=== PATIENT | male | born 1980 | race Caucasian/White ===

== ENCOUNTER 2025-04-05 02:32 | Emergency (ER) | payer OTHER, SELFPAY ==
[2025-04-05] VITALS (16 sets, daily range): BP systolic 120–157; BP diastolic 68–102; PULSE 49–80; RESP 11–21; TEMP 36.6–36.7; O2SAT 95–99; BMI 30.9
--- NOTE | 2025-04-05 02:30 | XR_ITS ---
PROCEDURE INFORMATION: Exam: XR Chest Exam date and time: 04/05/2025 2:35 AM Age: 44 years old Clinical indication: Other: Upper chest pain radiating to L arm TECHNIQUE: Imaging protocol: Radiologic exam of the chest. Views: 2 views. COMPARISON: No relevant prior studies available. FINDINGS: Lungs: Unremarkable. No consolidation. Pleural spaces: Unremarkable. No pleural effusion. No pneumothorax. Heart/Mediastinum: Unremarkable. No cardiomegaly. Bones/joints: Unremarkable. IMPRESSION: No acute findings.
--- NOTE | 2025-04-05 02:30 | ECG_ITS ---
APPROVED REPORT Exam: Resting ECG HR:68 bpm ECG Measurements Heart Rate 68 AXES OH 117 P 64 QRSd 110 QRS 73 QT 370 T 66 QTc 388 Conclusion SINUS RHYTHM WITH SHORT OH INTERVAL No STEMI Electronically signed by : MARYCHUY MCGOVERN, 04/05/2025 06:51:21
--- NOTE | 2025-04-05 02:31 | ED_ITS ---
Discharge Plan Disposition Patient Disposition: Home, Self-Care Condition: Good Prescriptions Prescriptions: No Action azithromycin 250 MG tablet 250 mg PO DIRECTED Qty: 6 0RF Rx Instructions: Take two (2) tablets on day #1, then one (1) tablet day #2 thru #5 loperamide 2 MG tablet 2 mg PO TIDP PRN (Reason: Diarrhea) Qty: 10 0RF promethazine 25 MG tablet 25 mg PO Q6HP PRN (Reason: Nausea And Vomiting) Qty: 10 0RF Referrals Follow up/Referrals: Amando Fung MD [Staff Physician] - See instructions (Please call to schedule follow-up with Cardiology.) Francisco Hayes MD [Primary Care Provider] - See instructions Activity Restrictions/Add. Instructions Additional Instructions/Restrictions: You were evaluated for chest pain and did not have evidence of a heart attack at this time. Due to your recent mini stroke, you are likely at high risk for an event related to your heart. Follow-up with cardiology as recommended for further testing. The number to their office is included in your referral paperwork. Please call them this morning to schedule that appointment and let them know that you were seen in the emergency department overnight. Continue taking your medications as prescribed. Please return for any new or worsening symptoms. Clinical Impressions Clinical Impression: Chest pain Qualifiers: Chest pain type: unspecified Qualified Code(s): R07.9 - Chest pain, unspecified Stand Alone Forms Stand Alone Forms: Work/School Release Instructions Patient Instructions: DI for Chest Pain Print Language Print Language: Maltese Discharge ED Provider: Michael Walls HPI <Michael Walls MD - Last Filed: 04/05/25 06:53> General Chief Complaint: Chest Pain Stated Complaint: Chest Pain Time Seen by Provider: 04/05/25 02:32 History of Present Illness HPI narrative: 44-year-old male presents to the ER complaining of upper chest pain. Patient's pain started 2-1/2 hours prior to arrival. He reports he was seen at [facility] 1 week ago and diagnosed with a mini stroke . He states he was also told he had high blood pressure at that time and was started on lisinopril. He was just laying down when he started to having pain across the upper chest on both sides. He started having tingling radiating into the left arm. He took 324 mg of aspirin and his normal morning dose of lisinopril. Symptoms did not improve so he called EMS. EMS administered nitro prior to arrival. Patient reports since receiving nitro his chest pain and arm tingling are improved. Chest pain now 2 out of 10. He reports his symptoms from the mini stroke included left arm numbness but this sensation that he experienced tonight associated with the chest pain was different. He has no numbness or weakness in any extremity. No nausea, vomiting, or diarrhea. No headache, dizziness, jaw pain, or leg swelling. No recent illness. Related Data Previous Rx's ?Medication ?Instructions ?Recorded azithromycin 250 mg tablet 250 mg PO DIRECTED #6 tabs 02/25/20 loperamide 2 mg tablet 2 mg PO TIDP PRN Diarrhea #10 tabs 02/25/20 promethazine 25 mg tablet 25 mg PO Q6HP PRN Nausea And 02/25/20 Vomiting #10 tabs Allergies Allergy/AdvReac Type Severity Reaction Status Date / Time CODEINE Allergy Intermediate I-ITCHING Uncoded 11/19/17 14:40 Penicillin Allergy Mild I-HIVES Uncoded 11/19/17 14:40 [facility] <Michael Walls MD - Last Filed: 04/05/25 06:53> [facility] Disclaimer: The information contained in this section may have been updated after the patient was seen, as this information can be updated by other users. Social History Smoking Status: Current every day smoker tobacco type: cigarettes packs per day: 1 alcohol intake: never current occupational status: other Travel in the last 8 weeks?: None Have you lived/traveled outside US in past 30 days?: No Contact w/someone who lives/traveled outside US past 30 days?: No Exposure to someone with infectious disease in past 14 days?: No Do you have a fever (greater than 100.4 F or 38 C)?: No Have you tested positive for COVID-19?: No Exposed to someone with COVID-19 in past 14 days?: No Do you have a sore throat?: No Do you have a cough?: No Do you have any weakness?: No Do you have any diarrhea?: No Are you experiencing any unusual bleeding?: No Do you have any muscle aches/pain?: No Do you have any abdominal pain?: No Are you experiencing loss of taste or smell?: No Other Medical History Have you received the Flu Vaccine for this season: No Have you received the Pneumonia Vaccine: No <Michael Walls MD - Last Filed: 04/05/25 06:53> ROS Obtained: Yes Systems reviewed as appropriate & no additional complaints except as documented per HPI Physical Exam <Michael Walls MD - Last Filed: 04/05/25 06:53> General General appearance: alert and in no apparent distress Head Head exam: atraumatic and normocephalic Eye Eye exam: Present PERRL and EOMI ENT ENT exam: Present mucous membranes moist Neck Neck exam: Present normal inspection and full ROM Chest Chest inspection: Present symmetric chest wall rise Respiratory Respiratory exam: Present normal lung sounds bilaterally; Absent respiratory distress, wheezes or stridor Cardiovascular Cardiovascular exam: Present regular rate and normal rhythm Abdominal Exam Abdominal exam: Present soft; Absent distention or tenderness Extremities Exam Extremities exam: Present full ROM Neurological Exam Neurological exam: Present alert, oriented X3 and other (NIH 0, no identifiable deficits on exam); Absent motor sensory deficit Psychiatric Psychiatric exam: Present normal affect and normal mood Skin Skin exam: Present warm and dry HEART Score <Michael Walls MD - Last Filed: 04/05/25 06:53> HEART Score HEART Score assessment performed?: Yes History (anamnesis): Moderately suspicious ECG: Non-specific disturbance Age: <45 years Risk factors: Atherosclerosis history Troponin: </= normal limit HEART Score: 4 <Ryann Vergara MD - Last Filed: 04/05/25 09:10> HEART Score HEART Score: 4 Critical Care <Michael Walls MD - Last Filed: 04/05/25 06:53> Critical Care Time Critical Care Time: No Medical Decision Making <Michael Walls MD - Last Filed: 04/05/25 06:53> Medical Records Medical records reviewed: Yes I reviewed the patient's medical records. MR Comment: The last records of this patient in our system are from 2020 patient was seen by Dr[address] Pate. He was diagnosed with gastroenteritis, right otitis media, sinusitis. He was prescribed Zithromax, Phenergan, Imodium Lauro Inquiry Pt receiving controlled substance: No Vital Signs Vital Signs: 04/05/25 02:34 04/05/25 03:00 04/05/25 03:11 Temperature 97.9 F Temperature Source Oral Pulse Rate 60 80 Pulse Rate [Right Radial] 80 Respiratory Rate 16 18 Blood Pressure 121/72 Blood Pressure [Right Arm] 136/81 Blood Pressure Mean Blood Pressure Mean [Right Arm] 99 Blood Pressure Source [Right Arm] Automatic Cuff Blood Pressure Position [Right Arm] Supine 02 Sat by Pulse Oximetry 99 96 Oxygen Delivery Method Room Air 04/05/25 03:31 04/05/25 04:00 04/05/25 04:30 Temperature Temperature Source Pulse Rate 67 57 L 54 L Pulse Rate [Right Radial] Respiratory Rate 11 L 19 17 Blood Pressure 125/74 120/68 122/70 Blood Pressure [Right Arm] Blood Pressure Mean Blood Pressure Mean [Right Arm] Blood Pressure Source [Right Arm] Blood Pressure Position [Right Arm] 02 Sat by Pulse Oximetry 97 96 96 Oxygen Delivery Method 04/05/25 05:00 04/05/25 05:30 04/05/25 06:00 Temperature Temperature Source Pulse Rate 51 L 53 L 51 L Pulse Rate [Right Radial] Respiratory Rate 16 21 18 Blood Pressure 122/74 133/81 125/77 Blood Pressure [Right Arm] Blood Pressure Mean Blood Pressure Mean [Right Arm] Blood Pressure Source [Right Arm] Blood Pressure Position [Right Arm] 02 Sat by Pulse Oximetry 97 97 95 Oxygen Delivery Method 04/05/25 06:30 04/05/25 07:00 04/05/25 07:30 Temperature Temperature Source Pulse Rate 54 L 55 L 49 L Pulse Rate [Right Radial] Respiratory Rate 21 19 20 Blood Pressure 138/83 133/77 142/86 H Blood Pressure [Right Arm] Blood Pressure Mean 99 107 Blood Pressure Mean [Right Arm] Blood Pressure Source [Right Arm] Blood Pressure Position [Right Arm] 02 Sat by Pulse Oximetry 95 97 97 Oxygen Delivery Method 04/05/25 08:02 04/05/25 08:30 04/05/25 09:00 Temperature Temperature Source Pulse Rate 51 L 51 L 58 L Pulse Rate [Right Radial] Respiratory Rate 18 19 14 Blood Pressure 149/83 H 141/89 H 157/102 H Blood Pressure [Right Arm] Blood Pressure Mean 101 108 118 Blood Pressure Mean [Right Arm] Blood Pressure Source [Right Arm] Blood Pressure Position [Right Arm] 02 Sat by Pulse Oximetry 96 96 98 Oxygen Delivery Method Lab Data Labs: Lab Results 04/05/25 02:20: WBC 16.5 H, RBC 5.02, Hgb 15.2, Hct 45.3, MCV 90.2, MCH 30.3, MCHC 33.6, RDW 13.0, Plt Count 245, MPV 11.7 H, Neut % (Auto) 61.8, Lymph % (Auto) 28.6, [place] % (Auto) 7.1, Eos % (Auto) 1.8, Baso % (Auto) 0.3, Neut # (Auto) 10.2 H, Lymph # (Auto) 4.7 H, [place] # (Auto) 1.2 H, Eos # (Auto) 0.3, Baso # (Auto) 0.1, PT 10.3, INR 0.91, Sodium 139, Potassium 3.8, Chloride 107, Carbon Dioxide 28, Anion Gap 7.8, BUN 16, Creatinine 0.90, Estimated Creat Clear 139, Estimated GFR 93, Est GFR ( Amer) 112, Glucose 101 H, Calcium 8.8, Total Bilirubin 0.4, AST 32, ALT 20, Alkaline Phosphatase 109, Troponin I < 0.01, NT-Pro-B Natriuret Pep < 20.0, Total Protein 7.3, Albumin 4.5, Globulin 2.8, Albumin/Globulin Ratio 1.6 04/05/25 05:23: Troponin I < 0.01 04/05/25 02:20 04/05/25 02:20 Response Orders (Tests/Meds): ED MEDICATIONS Discontinued Medications Generic Name Dose Route Start Last Admin Trade Name Freq PRN Reason Stop Dose Admin Aspirin 324 mg 04/05/25 02:29 04/05/25 02:39 Aspirin 81mg Chewable Tablet PO 04/05/25 02:30 Not Given ONCE ONE Nitroglycerin 0.4 mg 04/05/25 02:29 04/05/25 02:41 Nitroglycerin 0.4mg Sl Tablet SL 04/05/25 02:30 0.4 mg ONCE ONE Administration ORDERS Category Date Time Status XR chest 2V Stat Exams 04/05/25 02:30 Completed Complete Blood Count Auto Diff Stat Lab 04/05/25 02:20 Completed Comprehensive Metabolic Panel Stat Lab 04/05/25 02:20 Completed NT Pro Brain Natriuretic Pep. Stat Lab 04/05/25 02:20 Completed Prothrombin Time INR Stat Lab 04/05/25 02:20 Completed Troponin I Q3H Lab 04/05/25 05:23 Completed Troponin I Stat Lab 04/05/25 02:20 Completed MDM Narrative Medical Decision Narrative: In summary, this 44-year-old male with comorbidities described in the HPI which may not be at goal therapy presents to the emergency department today with chest pain and tingling radiating into the left arm. On initial evaluation patient is hemodynamically stable, afebrile, describes his pain as 2 out of 10 since receiving the nitro, GCS 15, no neurologic deficits, cardiopulmonary exam benign, no reproducible chest wall tenderness, abdominal exam benign. Differential diagnosis includes but is not limited to ACS, I considered PE but patient is PERC negative, with patient having recent mini stroke I had considered the possibility that his tingling was related to neurologic symptoms however he states the onset was associated with his chest pain and the tingling also subsided as his chest pain lessened. He also states that the sensation of tingling was different than the sensation of numbness that he experienced with his recent mini stroke. I considered electrolyte abnormality, esophageal spasm, pneumothorax, among others. Based on these concerns, I ordered cardiac workup, serum labs. ECG personally interpreted demonstrates sinus rhythm, rate 68, normal axis, normal QTc, CT is slightly short at 117ms but no delta wave that would be concerning for WPW. Patient received additional dose of sublingual nitro for treatment in an attempt to completely eliminate his chest pain. Labs personally reviewed demonstrate leukocytosis WBC 16.5 which is nonspecific and nonactionable at this time, hemoglobin normal at 15.2, normal platelets, CMP nonactionable, initial troponin undetectably low less than 0.01, BNP undetectable less than 20. XR personally interpreted demonstrates no acute intrathoracic abnormality, see radiology read for final interpretation. On reassessment patient's pain is now 1 out of 10. He states he is feeling improved. I am reassured that his symptoms are improving however he has significant risk factors especially with his recent diagnosis of mini stroke. Unfortunately with this atherosclerosis risk that increases my concern about the etiology of his chest pain and my concern for it being cardiac in nature. I discussed with the patient staying in the ER for serial troponins and continued monitoring. He is agreeable to this. Patient was placed in the ED observation at 0300 for serial troponins to rule out evolving SC and preclude unnecessary admission. He remains on the cardiac technologist. He is being frequently reassessed. Patient has remained hemodynamically stable. His pain continued to improve. He currently is asymptomatic with no chest pain or arm tingling. Repeat troponin also undetectably low less than 0.01. Patient will remain in ED observation until cardiology team is available to assess the patient. They should be here in approximately 45 minutes. Hopefully their evaluation will preclude an unnecessary admission. With his recent mini stroke increasing risk factors for cardiovascular disease, I believe it is important to have him evaluated by cardiology before discharge. Patient agreeable to this plan. Patient handed off to Dr. Vergara in stable condition pending cardiology evaluation. <Ryann Vergara MD - Last Filed: 04/05/25 09:10> Vital Signs Vital Signs: 04/05/25 02:34 04/05/25 03:00 04/05/25 03:11 Temperature 97.9 F Temperature Source Oral Pulse Rate 60 80 Pulse Rate [Right Radial] 80 Respiratory Rate 16 18 Blood Pressure 121/72 Blood Pressure [Right Arm] 136/81 Blood Pressure Mean Blood Pressure Mean [Right Arm] 99 Blood Pressure Source [Right Arm] Automatic Cuff Blood Pressure Position [Right Arm] Supine 02 Sat by Pulse Oximetry 99 96 Oxygen Delivery Method Room Air 04/05/25 03:31 04/05/25 04:00 04/05/25 04:30 Temperature Temperature Source Pulse Rate 67 57 L 54 L Pulse Rate [Right Radial] Respiratory Rate 11 L 19 17 Blood Pressure 125/74 120/68 122/70 Blood Pressure [Right Arm] Blood Pressure Mean Blood Pressure Mean [Right Arm] Blood Pressure Source [Right Arm] Blood Pressure Position [Right Arm] 02 Sat by Pulse Oximetry 97 96 96 Oxygen Delivery Method 04/05/25 05:00 04/05/25 05:30 04/05/25 06:00 Temperature Temperature Source Pulse Rate 51 L 53 L 51 L Pulse Rate [Right Radial] Respiratory Rate 16 21 18 Blood Pressure 122/74 133/81 125/77 Blood Pressure [Right Arm] Blood Pressure Mean Blood Pressure Mean [Right Arm] Blood Pressure Source [Right Arm] Blood Pressure Position [Right Arm] 02 Sat by Pulse Oximetry 97 97 95 Oxygen Delivery Method 04/05/25 06:30 04/05/25 07:00 04/05/25 07:30 Temperature Temperature Source Pulse Rate 54 L 55 L 49 L Pulse Rate [Right Radial] Respiratory Rate 21 19 20 Blood Pressure 138/83 133/77 142/86 H Blood Pressure [Right Arm] Blood Pressure Mean 99 107 Blood Pressure Mean [Right Arm] Blood Pressure Source [Right Arm] Blood Pressure Position [Right Arm] 02 Sat by Pulse Oximetry 95 97 97 Oxygen Delivery Method 04/05/25 08:02 04/05/25 08:30 04/05/25 09:00 Temperature Temperature Source Pulse Rate 51 L 51 L 58 L Pulse Rate [Right Radial] Respiratory Rate 18 19 14 Blood Pressure 149/83 H 141/89 H 157/102 H Blood Pressure [Right Arm] Blood Pressure Mean 101 108 118 Blood Pressure Mean [Right Arm] Blood Pressure Source [Right Arm] Blood Pressure Position [Right Arm] 02 Sat by Pulse Oximetry 96 96 98 Oxygen Delivery Method Lab Data Labs: Lab Results 04/05/25 02:20: WBC 16.5 H, RBC 5.02, Hgb 15.2, Hct 45.3, MCV 90.2, MCH 30.3, MCHC 33.6, RDW 13.0, Plt Count 245, MPV 11.7 H, Neut % (Auto) 61.8, Lymph % (Auto) 28.6, [place] % (Auto) 7.1, Eos % (Auto) 1.8, Baso % (Auto) 0.3, Neut # (Auto) 10.2 H, Lymph # (Auto) 4.7 H, [place] # (Auto) 1.2 H, Eos # (Auto) 0.3, Baso # (Auto) 0.1, PT 10.3, INR 0.91, Sodium 139, Potassium 3.8, Chloride 107, Carbon Dioxide 28, Anion Gap 7.8, BUN 16, Creatinine 0.90, Estimated Creat Clear 139, Estimated GFR 93, Est GFR ( Amer) 112, Glucose 101 H, Calcium 8.8, Total Bilirubin 0.4, AST 32, ALT 20, Alkaline Phosphatase 109, Troponin I < 0.01, NT-Pro-B Natriuret Pep < 20.0, Total Protein 7.3, Albumin 4.5, Globulin 2.8, Albumin/Globulin Ratio 1.6 04/05/25 05:23: Troponin I < 0.01 Response Orders (Tests/Meds): ED MEDICATIONS Discontinued Medications Generic Name Dose Route Start Last Admin Trade Name Freq PRN Reason Stop Dose Admin Aspirin 324 mg 04/05/25 02:29 04/05/25 02:39 Aspirin 81mg Chewable Tablet PO 04/05/25 02:30 Not Given ONCE ONE Nitroglycerin 0.4 mg 04/05/25 02:29 04/05/25 02:41 Nitroglycerin 0.4mg Sl Tablet SL 04/05/25 02:30 0.4 mg ONCE ONE Administration ORDERS Category Date Time Status XR chest 2V Stat Exams 04/05/25 02:30 Completed Complete Blood Count Auto Diff Stat Lab 04/05/25 02:20 Completed Comprehensive Metabolic Panel Stat Lab 04/05/25 02:20 Completed NT Pro Brain Natriuretic Pep. Stat Lab 04/05/25 02:20 Completed Prothrombin Time INR Stat Lab 04/05/25 02:20 Completed Troponin I Q3H Lab 04/05/25 05:23 Completed Troponin I Stat Lab 04/05/25 02:20 Completed MDM Narrative Medical Decision Narrative: In summary, this 44-year-old male with comorbidities described in the HPI which may not be at goal therapy presents to the emergency department today with chest pain and tingling radiating into the left arm. On initial evaluation patient is hemodynamically stable, afebrile, describes his pain as 2 out of 10 since receiving the nitro, GCS 15, no neurologic deficits, cardiopulmonary exam benign, no reproducible chest wall tenderness, abdominal exam benign. Differential diagnosis includes but is not limited to ACS, I considered PE but patient is PERC negative, with patient having recent mini stroke I had considered the possibility that his tingling was related to neurologic symptoms however he states the onset was associated with his chest pain and the tingling also subsided as his chest pain lessened. He also states that the sensation of tingling was different than the sensation of numbness that he experienced with his recent mini stroke. I considered electrolyte abnormality, esophageal spasm, pneumothorax, among others. Based on these concerns, I ordered cardiac workup, serum labs. ECG personally interpreted demonstrates sinus rhythm, rate 68, normal axis, normal QTc, CT is slightly short at 117ms but no delta wave that would be concerning for WPW. Patient received additional dose of sublingual nitro for treatment in an attempt to completely eliminate his chest pain. Labs personally reviewed demonstrate leukocytosis WBC 16.5 which is nonspecific and nonactionable at this time, hemoglobin normal at 15.2, normal platelets, CMP nonactionable, initial troponin undetectably low less than 0.01, BNP undetectable less than 20. XR personally interpreted demonstrates no acute intrathoracic abnormality, see radiology read for final interpretation. On reassessment patient's pain is now 1 out of 10. He states he is feeling improved. I am reassured that his symptoms are improving however he has significant risk factors especially with his recent diagnosis of mini stroke. Unfortunately with this atherosclerosis risk that increases my concern about the etiology of his chest pain and my concern for it being cardiac in nature. I discussed with the patient staying in the ER for serial troponins and continued monitoring. He is agreeable to this. Patient was placed in the ED observation at 0300 for serial troponins to rule out evolving SC and preclude unnecessary admission. He remains on the cardiac technologist. He is being frequently reassessed. Patient has remained hemodynamically stable. His pain continued to improve. He currently is asymptomatic with no chest pain or arm tingling. Repeat troponin also undetectably low less than 0.01. Patient will remain in ED observation until cardiology team is available to assess the patient. They should be here in approximately 45 minutes. Hopefully their evaluation will preclude an unnecessary admission. With his recent mini stroke increasing risk factors for cardiovascular disease, I believe it is important to have him evaluated by cardiology before discharge. Patient agreeable to this plan. Patient handed off to Dr. Vergara in stable condition pending cardiology evaluation. Ursula: Upon my assumption of care, patient is noted to be sleeping and in no acute distress with stable vital signs. Cardiology was paged twice between the hours of [id number]. Ultimately, patient was requesting to go home and has not had chest pain for the past 4 hours. Patient was in the emergency department for just under 7 hours with stable vital signs and negative troponin. Cardiology stated they had multiple inpatient patients to see prior to being able to evaluate Mr. Rodney. Patient confirmed that he is taking a daily aspirin as well as lisinopril. He was advised to follow-up with cardiology by calling them this morning to schedule an appointment. He was also advised to inform them of his overnight evaluation for chest pain in order to be seen sooner. Patient was given strict return precautions. Patient discharged in stable condition.
[2025-04-05 02:37] LABS: Basophils # 0.1 K/mm3 (0-0.2); Basophils % 0.3 % (0.1-2.0); Eosinophils # 0.3 Kmm3 (0.0-0.4); Eosinophils % 1.8 % (0.1-12.0); Hematocrit 45.3 % (42.0-52.0); Hemoglobin 15.2 g/dL (14.1-18.0); Lymphocytes # 4.7 K/mm3 (0.7-4.5); Lymphocytes % 28.6 % (10-50); Mean Corpuscular HGB Conc 33.6 g/dL (31.8-35.4); Mean Corpuscular Hemoglobin 30.3 pg (27.0-31.2); Mean Corpuscular Volume 90.2 fl (80-94); Mean Platelet Volume 11.7 fl (7.4-10.4); Monocytes # 1.2 K/mm3 (0.1-1.0); Monocytes % 7.1 % (1.7-9.3); Neutrophils # 10.2 K/mm3 (1.8-7.8); Neutrophils % 61.8 % (37.0-80.0); Nucleated Red Blood Cells # 0 10^3/uL; Nucleated Red Blood Cells % 0 %; Platelet Count 245 K/mm3 (142-424); Red Blood Count 5.02 M/mm3 (4.60-6.20); Red Cell Distribution Width-SD 42.6 fL; White Blood Count 16.5 K/mm3 (4.8-10.8)
[2025-04-05] MEDS: NITROGLYCERIN 0.4MG SL TABLET 0.4 MG SL (02:41)
[2025-04-05 02:49] LABS: Alanine Aminotransferase 20 U/L (12-78); Albumin Level 4.5 g/dl (3.5-5.0); Albumin/Globulin Ratio 1.6 (1.1-1.8); Alkaline Phosphatase 109 U/L (38-126); Anion Gap 7.8 mEq/L (5-15); Aspartate Amino Transferase 32 U/L (17-59); Bilirubin,Total 0.4 mg/dl (0.2-1.3); Blood Urea Nitrogen 16 mg/dl (9-20); Calcium 8.8 mg/dl (8.4-10.2); Carbon Dioxide 28 mmol/L (22.0-30.0); Chloride 107 mmol/L (98-107); Creatinine Clearance Estimated 139 mL/min (50-200); Estimated Glomerular Filt Rate 93 ml/min (>60); GFR (African American) 112 ML/MIN (>60); Globulin 2.8 g/dL (1.3-3.2); Glucose 101 mg/dl (74-100); Potassium 3.8 mmoL/L (3.5-5.1); Sodium 139 mmol/L (136-145); Total Protein,Serum 7.3 g/dl (6.3-8.2)
[2025-04-05 02:59] LABS: NT Pro Brain Natriuretic Pep. < 20.0 pg/mL (0-125)
[2025-04-05 03:04] LABS: Troponin I < 0.01 ng/ml (0.00-0.034)
[2025-04-05 05:53] LABS: Troponin I < 0.01 ng/ml (0.00-0.034)
[2025-04-05 07:11] LABS: INR 0.91 (0.9-1.1); Prothrombin Time 10.3 seconds (10.1-12.5)
--- NOTE | 2025-04-05 08:59 | PC.NURSE ---
Paged Cardiology again for pt consult. They stated it would be awhile due to inpatient consults. notified. Pt agreed to follow up with them outpatient.
== END 2025-04-05 09:10 | disposition home or self-care (01) ==
PROVIDERS: Emergency Provider Emergency Medicine; PCP Internal Medicine Adolescent Medicine
DX: R07.89 Other chest pain (principal); I10 Essential (primary) hypertension
CPT/HCPCS: 71046; 80053; 83880; 84484; 85025; 85610; 93005; 99285

== ENCOUNTER 2025-04-14 07:46 | Outpatient (CLI) | payer OTHER, SELFPAY ==
--- NOTE | 2025-04-14 | CA_ITS ---
APPROVED REPORT Exam: Exercise Treadmill Technologist: Kenyetta Aquino Ht: 5 ft 8 in Wt: 196 lbs BSA: 2.03 m2 Medical History Medications: Lisinopril, Aspirin Stress Test Details Test: Exercise stress testing was performed using a modified Presley protocol. HR Resting HR: 54 bpm Max Heart Rate (APMHR): 178 bpm Max HR Achieved: 159 bpm Target HR (85% APMHR): 151 bpm % of APMHR: 89 Recovery HR: 100 bpm BP Resting BP: 125.0/64.0 mmHg Max BP: 160.0/80.0 mmHg Recovery BP: 156.0/74.0 mmHg ECG Resting ECG: SR. NSST Clinical Highest Stage Achieved: IV Stress ECG Conclusion Stage I: mild SOA. Stage III: leg fatigue. Stopped @ 9:04 HR @ goal for 20sec. Pt c/o SOA, leg pain, No chest pain. 2 min recovery: resolving quickly. Symptoms: SOA. leg fatigue. Arrhythmias/Ectopy: None. ST-T changes: None. Electronically signed by : Melissa Lewis MD 04/14/2025 23:56:58
[2025-04-14] MEDS: ALBUTEROL 0.083% 2.5 MG/3 ML NEB IH (08:34)
== END 2025-04-14 23:59 | disposition home or self-care (01) ==
LOC: RT 07:47
PROVIDERS: PCP Internal Medicine Adolescent Medicine; Visit Provider Nurse Practitioner Family
DX: I67.1 Cerebral aneurysm, nonruptured (principal); I10 Essential (primary) hypertension; R06.09 Other forms of dyspnea; R07.89 Other chest pain
CPT/HCPCS: 93017; 93018; 94010; 94727; 94729

== ENCOUNTER 2025-06-29 09:17 | Emergency (ER) | payer OTHER, SELFPAY ==
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
[2025-06-29 09:23] VITALS: BP 119/76; PULSE 57; RESP 16; TEMP 36.6; O2SAT 96; BMI 29.5
--- OUTSIDE RECORDS SUMMARY | 2025-06-29 09:35 | XMS_ITS | Encounter Summary ---
Author Organization Healthcare Address [address] [place] [address] Care Team Providers Care Professor Of Forestry Name Role Phone Unavailable Primary Care Provider Unavailabl e Encounter Details Date Type Department Care Team (Late st Contact Info) Description 03/30/2025 Telephone [place] [facility] [address] [place] [address] Kae Whitney MD [address] [place] [address] Social History Tobacco Use Types Packs/Day Years Used Date Smoking Tobacco: Never Assessed Sex and Gender Information Value Date Recorded Sex Assigned at Not on file Legal Sex Male 8:48 PM EDT Gender Identity Not on file Sexual Orientation Not on file documented as of this encounter Miscellaneous Notes * Telephone Encounter - FosterRosina - 03/30/2025 1:38 PM EDT Patient Phone Message Reason for Call: Pt has appt 04/13 and wants to make it later around 10:30 since he comes from a distance. Please advise. Best contact number and optimal time of day to reach caller: [phone]/pt Note: Please do not reply to this message. Follow-up communication and further actions as a result of this message need to be communicated with the patient directly, if the patient is not active onMyChart. If the patient is active on MyChart, they will receive notification of the communication/outcome via MyChart. documented in this encounter Plan of Treatment Upcoming Encounters Date Type Department Care Team (Late st Contact Info) Description 10/12/2025 10:15 AM EST Appointment [facility] [address] [place] [address] 10/12/2025 11:40 AM EST Office Visit [place] [facility] [address] [place] [address] Kae Whitney MD [address] [place] [address] documented as of this encounter Visit Diagnoses Not on filedocumented in this encounter
--- OUTSIDE RECORDS SUMMARY | 2025-06-29 09:35 | XMS_ITS | Clinical Summary ---
Author Organization [facility] Address [address] [place] [address] Care Team Providers Care Grade Teacher Name Role Phone Unavailable Primary Care Provider Unavailabl e Allergies Active Allergy Reactions Criticality Noted Date Comments Penicillin G Unknown - Patient st ates they do not know rxn details Low 04/13/2025 Medications lisinopril 10 MG tablet Take 1 tablet by mouth daily. 03/30/2025 Active aspirin 325 MG tablet Take 1 tablet by mouth daily. Active Active Problems No known active problems Encounters Date Type Department Care Team Description 04/13/2025 10:40 AM EDT Consult [facility] [address] [facility] [place] [address] Kae Whitney MD Cerebral aneurysm, nonruptured (Primary Dx) 04/13/2025 Travel 03/30/2025 Telephone [facility] [address] [facility] [place] [address] Kae Whitney MD from Last 3 Months Social History Tobacco Use Types Packs/Day Years Used Date Smoking Tobacco: Every Day Cigarettes 1 20.6 Started: 2004 Smokeless Tobacco: Never Tobacco Cessation:Ready to Q uit: Not Asked; Counseling Given: Not Answered Alcohol Use Standard Drinks/Week Comments Yes 0 (1 standard drink = 0.6 oz pure alcohol) occasionally drinks a beer pt. stated Sex and Gender Information Value Date Recorded Sex Assigned at Not on file Legal Sex Male 8:48 PM EDT Gender Identity Not on file Sexual Orientation Not on file Last Filed Vital Signs Vital Sign Reading Time Taken Comments Blood Pressure 116/74 04/13/2025 10:36 AM EDT Pulse 64 04/13/2025 10:36 AM EDT Temperature - - Respiratory Rate - - Oxygen Saturation 98% 04/13/2025 10:36 AM EDT Inhaled Oxygen Concentration - - Weight 89.6 kg (197 lb 8.5 oz) 04/13/2025 10:36 AM EDT Height 175.3 cm (5' 9 ) 04/13/2025 10:36 AM EDT Body Mass Index 29.17 04/13/2025 10:36 AM EDT Plan of Treatment Upcoming Encounters Date Type Department Care Team (Late st Contact Info) Description 10/12/2025 10:15 AM EST Appointment [facility] [address] [place] [address] 10/12/2025 11:40 AM EST Office Visit [place] [facility] [address] [place] [address] Kae Whitney MD [address] [place] [address] Health Maintenance Due Date Last Done Comments [facility]-Depression Screening 1982 [facility]-/Child/Adol SDOH Screenings 1982 [facility]-Varicella Vaccines (1 of 2 - 13+ 2-dose series) 1995 HPV Vaccines (1 - Male 3-dos e series) 1997 [facility]-DTaP,Tdap,and Td Vaccine s (2 - Tdap) 10/21/1999 10/20/1999 [facility]- SDOH Screenings 2000 [facility]-Adult SDOH Screenings 2000 [facility]-Hepatitis B Vaccines (1 of 3 - 19+ 3-dose series) 2001 [facility]-ROUNV-59 Vaccine (1 - 20 24-25 season) 2024 [facility]-Influenza Vaccine (#1) 2025 [facility]-Zoster Vaccines (1 of 2) 2032 [facility]-HIB Vaccines Aged Out No longer e ligible based on patient's age to complete this topic [facility]-Hepatitis A Vaccines Aged Out No longer eligible based on patient's age to complete this topic [facility]-IPV Vaccines Aged Out No longer e ligible based on patient's age to complete this topic [facility]-Pneumococcal Vaccine: Pediatrics (0 to 5 Years) and At-Risk Patients (6 to 49 Years) Aged Out No long er eligible based on patient's age to complete this topic [facility]-Rotavirus Vaccines Aged Out No lo nger eligible based on patient's age to complete this topic Insurance [employer]
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
--- NOTE | 2025-06-29 09:36 | ED_ITS ---
Discharge Plan Disposition Patient Disposition: Home, Self-Care Prescriptions Prescriptions: New amoxicillin-pot clavulanate 875-125 mg tablet 1 tab PO BID 7 Days Qty: 14 0RF ofloxacin 0.3 % drops 10 drp otic (ear) DAILY 7 Days Qty: 10 0RF No Action azithromycin 250 MG tablet 250 mg PO DIRECTED Qty: 6 0RF Rx Instructions: Take two (2) tablets on day #1, then one (1) tablet day #2 thru #5 loperamide 2 MG tablet 2 mg PO TIDP PRN (Reason: Diarrhea) Qty: 10 0RF promethazine 25 MG tablet 25 mg PO Q6HP PRN (Reason: Nausea And Vomiting) Qty: 10 0RF Referrals Follow up/Referrals: Tiesha Barbour APRN [Primary Care Provider, Medical] - See instructions Activity Restrictions/Add. Instructions Additional Instructions/Restrictions: You are being prescribed antibiotics to take by mouth as well as eardrops. Take both of these as prescribed. If your symptoms do not improve by the end of the week, follow-up with your primary care physician for further management. If you develop any new or worsening symptoms, or if you become concerned for your health for any reason, return to the emergency department for evaluation Clinical Impressions Clinical Impression: Acute left otitis media, Eardrum rupture, left Print Language Print Language: Liberian Discharge ED Provider: Juan Pablo Perera Adult HPI General Chief complaint: Ear Stated complaint: Ear Infection/Possible Popped L eardrum Time Seen by Provider: 06/29/25 09:28 Mode of Arrival: Ambulatory Source of Information: Patient Description of Symptoms (Recalled from ER Triage Doc. by RN): Patient states that on Saturday06/26/25 he started having some left ear pain and so he put a cotton swab in his ear and it had some blood on it. Patient states he just wants to make sure I didn't bust my ear drum History of Present Illness HPI narrative: Leno Rodney is a 44-year-old male with a history of hypertension who presents to the emergency department for complaints of left ear drainage and pain. Patient states that over the weekend, he felt his left ear popped twice with sharp pains to the left ear. Since then, he feels like he can hear the ocean in that left ear. Last night he had some mild bloody drainage from that side. He also notes that he has had sinus congestion recently and thinks he may have a sinus infection. He believes he may have ruptured his left eardrum. He states that he did stick a Q-tip in the eardrum after it started draining but did not stick it in very far. Related Data Previous Rx's ?Medication ?Instructions ?Recorded azithromycin 250 mg tablet 250 mg PO DIRECTED #6 ta bs 02/25/20 loperamide 2 mg tablet 2 mg PO TIDP PRN Diarrhea #1 0 tabs 02/25/20 promethazine 25 mg tablet 25 mg PO Q6HP PRN Nausea And 02/25/20 Vomiting #10 tabs amoxicillin 875 mg-potassium 1 tab PO BID 7 days #14 t abs 06/29/25 clavulanate 125 mg tablet ofloxacin 0.3 % ear drops 10 drp otic (ear) DAILY 7 da ys #10 06/29/25 mL Allergies Allergy/AdvReac Type Severity Reaction Status Date / Time CODEINE Allergy Intermediate I-ITCHING Uncoded 11/19/17 14:40 Penicillin Allergy Mild I-HIVES Uncoded 11/19/17 14:40 [facility] Disclaimer: The information contained in this section may have been updated after the patient was seen, as this information can be updated by other users. Social History Smoking Status: Current every day smoker tobacco type: cigarettes packs per day: 1 alcohol intake: never current occupational status: other Travel in the last 8 weeks?: None Have you lived/traveled outside US in past 30 days?: No Contact w/someone who lives/traveled outside US past 30 days?: No Exposure to someone with infectious disease in past 14 days?: No Do you have a fever (greater than 100.4 F or 38 C)?: No Have you tested positive for COVID-19?: No Exposed to someone with COVID-19 in past 14 days?: No Do you have a sore throat?: No Do you have a cough?: No Do you have any weakness?: No Do you have any diarrhea?: No Are you experiencing any unusual bleeding?: No Do you have any muscle aches/pain?: No Do you have any abdominal pain?: No Are you experiencing loss of taste or smell?: No Other Medical History Have you received the Flu Vaccine for this season: No Have you received the Pneumonia Vaccine: No ROS Obtained: Yes Systems reviewed as appropriate & no additional complaints except as documented Physical Exam General General appearance: alert and in no apparent distress Head Head exam: atraumatic Eye Eye exam: Present normal appearance ENT ENT exam: Present normal external ear exam and other (Left tympanic membrane is mildly erythematous, small defect consistent with perforation in the inferior aspect. No significant swelling or blood noted in the external auditory canal. Right tympanic membrane is unremarkable) Neck Neck exam: Present full ROM Chest Chest inspection: Present symmetric chest wall rise Respiratory Respiratory exam: Present normal lung sounds bilaterally; Absent respiratory di stress Cardiovascular Cardiovascular exam: Present regular rate and normal rhythm Abdominal Exam Abdominal exam: Present soft; Absent tenderness or guarding exam: Present deferred Extremities Exam Extremities exam: Present normal inspection Back Exam Back exam: Present normal inspection Neurological Exam Neurological exam: Present alert and oriented X3 Psychiatric Psychiatric exam: Present normal affect Skin Skin exam: Present warm and dry Medical Decision Making Medical Records Screening: Per USPSTF and CDC recommendations, given the prevalence of disease in our region, it is our hospital?s policy to screen for HIV and viral Hepatitis for all patients aged 18 and over and those with ongoing risk factors. Lauro Inquiry Pt receiving controlled substance: No Vital Signs: 06/29/25 09:23 Temperature 97.9 F Temperature Source Oral Pulse Rate [Left Brachial] 57 L Respiratory Rate 16 Blood Pressure [Left Arm] 119/76 Blood Pressure Mean [Left Arm] 90 Blood Pressure Source [Left Arm] Automatic Cuff Blood Pressure Position [Left Arm] Sitting 02 Sat by Pulse Oximetry 96 Oxygen Delivery Method Room Air Medical Decision Narrative: Leno Rodney is a 44-year-old male with a history of hypertension who presents to the emergency department for complaints of left ear drainage and pain. Patient states that over the weekend, he felt his left ear popped twice with sharp pains to the left ear. Since then, he feels like he can hear the ocean in that left ear. Last night he had some mild bloody drainage from that side. He also notes that he has had sinus congestion recently and thinks he may have a sinus infection. He believes he may have ruptured his left eardrum. He states that he did stick a Q-tip in the eardrum after it started draining but did not stick it in very far. On arrival, patient is normotensive, breathing comfortably on room air and in no respiratory distress. Appropriate oxygen saturations. Afebrile. Physical exam, stated above, revealed an overall well- appearing male in no distress. He has normal right tympanic membrane, however the left panic membrane appears mildly erythematous with small defect in the inferior aspect of the tympanic membrane that likely represents tympanic membrane rupture. No swelling or bogginess of the area behind the ear. Differential diagnosis includes, but is not limited to: Otitis media, tympanic membrane rupture, otitis externa, viral/bacterial sinusitis, among others. The most morbid conditions were considered and workup was based on these. Patient's physical exam is mostly consistent with otitis media that likely resulted in tympanic membrane rupture. Given this, will treat with oral Augmentin and ofloxacin drops. There is low concern for mastoiditis at this time and CT imaging is not indicated. Patient states that as a kid he was allergic to penicillins but has been taking amoxicillin before has not had any issues with it. I encouraged him to follow with his primary care physician at the end of the week if symptoms do not improve. Return precautions were given. All questions were answered. He demonstrated understanding and was in agreement this plan. He was then discharged to the emergency department in stable condition. Critical Care Critical Care Time Critical Care Time: No
[2025-06-29 09:45] VITALS: BP 119/76; PULSE 57; RESP 16; TEMP 36.6; O2SAT 96
== END 2025-06-29 09:46 | disposition home or self-care (01) ==
PROVIDERS: Emergency Provider Student in an Organized Health Care Education/Training Program; PCP Nurse Practitioner Family
DX: H66.92 Otitis media, unspecified, left ear (principal); H72.92 Unspecified perforation of tympanic membrane, left ear
CPT/HCPCS: 99282

== ENCOUNTER 2025-10-25 16:10 | Outpatient (CLI) | payer OTHER, SELFPAY ==
--- OUTSIDE RECORDS SUMMARY | 2025-10-25 16:12 | XMS_ITS | Encounter Summary ---
Author Organization [facility] Address [address] [place] [address] Care Team Providers Care Drapery Hand Name Role Phone Tiesha Barbour Joce HERNANDEZ Primary Care Provider [phone]- [phone] Reason for Referral * Imaging (Routine) - Authorized Specialty Diagnoses / Procedures Referred By Contac t Referred To Contact Diagnoses Cerebral aneurysm, nonruptured Procedures MR Angio Head wo IV Contrast Kae Whitney MD [address] [address] Phone: tel: fax: [facility] () [address] [place] [address] Phone: tel: fax: Referral ID Status Reason Start Date Expiration Date V isits Requested Visits Authorized [id number] Authorized 10/20/2025 04/21/2027 1 1 Encounter Details Date Type Department Care Team (Late st Contact Info) Description 10/20/2025 Orders Only [place] [facility] [address], [address] [place] [address] Kae Whitney MD [address] [address] Cerebral aneurysm, nonruptured (Primary Dx) Social History Tobacco Use Types Packs/Day Years Used Date Smoking Tobacco: Every Day Cigarettes 1 20.9 Started: 2004 Smokeless Tobacco: Never Alcohol Use Standard Drinks/Week Comments Yes 0 (1 standard drink = 0.6 oz pure alcohol) occasionally drinks a beer pt. stated Sex and Gender Information Value Date Recorded Sex Assigned at Not on file Legal Sex Male 8:48 PM EDT Gender Identity Not on file Sexual Orientation Not on file documented as of this encounter Plan of Treatment Scheduled Orders Name Type Priority Associated Diagnoses Orde r Schedule MR Angio Head wo IV Contrast Imaging Routine Cerebral aneurysm, nonruptured 1 Occurrences starting 10/20/2025 until 04/23/2027 documented as of this encounter Visit Diagnoses Diagnosis Cerebral aneurysm, nonruptured- Primary documented in this encounter Additional Health Concerns Assessment Noted Time A fall risk assessment has been complete d for the patient 04/13/2025 10:40 AM EDT A Body Mass Index follow-up plan has been documented for the patient 04/16/2025 3:27 PM EDT documented as of this encounter Care Teams Drapery Hand Relationship Specialty Start Date End Date Tiesha Barbour APRN [address] [place] [address] PCP - General 09/28/25 documented as of this encounter
--- OUTSIDE RECORDS SUMMARY | 2025-10-25 16:12 | XMS_ITS | Encounter Summary ---
Author Organization [facility] Address [address] [place] [address] Care Team Providers Care High School Music Teacher Name Role Phone Tiesha Barbour MARY Primary Care Provider [phone]- [phone] Reason for Visit * Reason Onset Date Comments HCN - Patient Message 10/20/2025 Reschedule Encounter Details Date Type Department Care Team (Late st Contact Info) Description 10/20/2025 Telephone [place] [facility] [address] [place] [address] Kae Whitney MD [address] [place] [address] HCN - Patient Message (Reschedule ) Social History Tobacco Use Types Packs/Day Years [...] encounter Miscellaneous Notes * Telephone Encounter - Vikki Renee - 10/20/2025 3:34 PM EST Patient Phone Message Reason for Call: Sister is wanting to reschedule missed appts. Best contact number and optimal time of day to reach caller: [phone] anytime Note: Please do not reply to this message. Follow-up communication and further actions as a result of this message need to be communicated with the patient directly, if the patient is not active onMyChart. If the patient is active on MyChart, they will receive notification of the communication/outcome via [employer]. documented in this encounter Plan of Treatment Not on file documented as of this encounter Visit Diagnoses Not on filedocumented in this encounter Additional Health Concerns Assessment Noted Time A fall risk assessment has been complete d for the patient 04/13/2025 10:40 AM EDT A Body Mass Index follow-up plan has been documented for the patient 04/16/2025 3:27 PM EDT documented as of this encounter Care Teams High School Music Teacher Relationship Specialty Start Date End Date Tiesha Barobur APRN [address] [place] [address] PCP - General 09/28/25 documented as of this encounter
--- OUTSIDE RECORDS SUMMARY | 2025-10-25 16:12 | XMS_ITS | Clinical Summary ---
Author Organization [facility] Address [address] [place] [address] Care Team Providers Care Medical Affairs Manager Name Role Phone Tiesha Barbour APRN Primary Care Provider [phone]- [phone] Allergies Active Allergy Reactions Criticality Noted Date Comments Penicillin G Unknown - Patient st ates they do not know rxn details Low 04/13/2025 Medications lisinopril 10 MG tablet Take 1 tablet by mouth daily. 03/30/2025 Active aspirin 325 MG tablet Take 1 tablet by mouth daily. Active Active Problems No known active problems Encounters Date Type Department Care Team Description 10/20/2025 Orders Only [address] [address] Kae Whitney MD Cerebral aneurysm, nonruptured (Primary Dx) 10/20/[address] [address] Kae Whitney MD HCN - Patient Message (Reschedule ) 09/29/[address] [address] Kae Whitney MD from Last 3 Months Social History Tobacco Use Types Packs/Day Years Used Date Smoking Tobacco: Every Day Cigarettes 1 20.9 Started: 2004 Smokeless Tobacco: Never Tobacco Cessation:Ready [...] 04/13/2025 10:36 AM EDT Plan of Treatment Health Maintenance Due Date Last Done Comments [facility]-Depression Screening 1982 [facility]-HIV Screening 1982 [facility]-Hepatitis C Screening 1982 [facility]-Infant/Child/Adol SDOH Screenings 1982 [facility]-Varicella Vaccines (1 of 2 - 13+ 2-dose series) 1995 [facility]-DTaP,Tdap,and Td Vaccine s (2 - Tdap) 10/21/1999 10/20/1999 [facility]- SDOH Screenings 2000 [facility]-Adult SDOH Screenings 2000 [facility]-Hepatitis B Vaccines (1 of 3 - 19+ 3-dose series) 2001 [facility]-Pneumococcal Vaccine: Pediatrics (0 to 5 Years) and At-Risk Patients (6 to 49 Years) (1 of 2 - PCV) 2001 HPV Vaccines (1 - 3-dose SCD M series) 2009 [id number] Vaccine ( - 20 season) 2025 [facility]-Influenza Vaccine (#1) 2025 [facility]-Zoster Vaccines (1 of 2) 2032 [facility]-Obesity Intervention Completed 04/13/2025 [facility]-HIB Vaccines Aged Out No longer e [...] age to complete this topic Insurance [employer] [facility] MEDICAID Care Teams Medical Affairs Manager Relationship Specialty Start Date End Date Tiesha Barbour APRN [address] [place] [address] PCP - General 09/28/25
--- OUTSIDE RECORDS SUMMARY | 2025-10-25 16:12 | XMS_ITS | Encounter Summary ---
Author Organization [facility] Address [address] [place] [address] Care Team Providers Care Rv Detailer Name Role Phone Tiesha Barbour MARY Primary Care Provider +1- [phone] Encounter Details Date Type Department Care Team (Late st Contact Info) Description 09/29/2025 Telephone [place] [facility] [address], [address] [place] [address] Kae Whitney MD [address] [place] [address] Social History Tobacco Use Types [...] encounter Miscellaneous Notes * Telephone Encounter - Tasia Ambrocio Sebastian - 09/29/2025 2:28 PM EDT Patient Phone Message Reason for Call: Debo is calling and MRA of head has been approved she will faxing the approval and if any questions can call and ref this number [phone]. Please advise. Best contact number and optimal time of day to reach caller: [phone] opt 4 Note: Please do not reply to this message. Follow-up communication and further actions as a result of this message need to be communicated with the patient directly, if the patient is not active onMyChart. If the patient is active on MyChart, they will receive notification of the communication/outcome via [employer]. documented in this encounter Plan of Treatment [...] documented as of this encounter Care Teams Rv Detailer Relationship Specialty Start Date End Date Tiesha Barbour APRN [address] [place] [address] PCP - General 09/28/25 documented as of this encounter
--- NOTE | 2025-10-25 16:13 | MR_ITS ---
PROCEDURE INFORMATION: Exam: MRA Head Without Contrast; Arteriography Exam date and time: 10/25/2025 4:38 PM Age: 45 years old Clinical indication: Pain; Headache; Additional info: Episodes of passing out, 7-10 times over the past 2 years TECHNIQUE: Imaging protocol: Magnetic resonance angiography head without contrast. [id number] (TOF) technique was utilized for this exam. Exam focused on the arteries. COMPARISON: No relevant prior studies available. FINDINGS: ANTERIOR CIRCULATION: Right internal carotid artery: Intracranial segment is patent with no significant stenosis. No aneurysm. Right middle cerebral artery: No occlusion or significant stenosis. No aneurysm. Right anterior cerebral artery: No occlusion or significant stenosis. No aneurysm. Left internal carotid artery: Intracranial segment is patent with no significant stenosis. No aneurysm. Left middle cerebral artery: No occlusion or significant stenosis. No aneurysm. Left anterior cerebral artery: No occlusion or significant stenosis. No aneurysm. POSTERIOR CIRCULATION: Right vertebral artery: No occlusion or significant stenosis. No aneurysm. Left vertebral artery: No occlusion or significant stenosis. No aneurysm. Basilar artery: No occlusion or significant stenosis. No aneurysm. Right posterior cerebral artery: No occlusion or significant stenosis. No aneurysm. Left posterior cerebral artery: No occlusion or significant stenosis. No aneurysm. IMPRESSION: No hemodynamically significant stenosis, large vessel occlusion or aneurysm is identified.
== END 2025-10-25 23:59 | disposition home or self-care (01) ==
LOC: RAD 16:11
PROVIDERS: PCP Nurse Practitioner Family; Visit Provider Student in an Organized Health Care Education/Training Program
DX: I67.1 Cerebral aneurysm, nonruptured (principal)
CPT/HCPCS: 70544